=== PATIENT | female | born 1970 | race Caucasian/White ===

== ENCOUNTER 2018-07-08 14:23 | Emergency (ER) | payer BC, OTHER ==
--- NOTE | 2018-07-08 14:46 | UC ---
Hand/Wrist HPI - HPI Summary HPI Summary: 48 yo female presents with right elbow pain and laceration. She tells me that she was at work and was walking a floor that was just mopped and still wet. She fell backwards and landed on her right elbow and hit the top of her head. No LOC. She left work and came to . She endorses some tingling and shocks radiating from her right elbow into her right hand. Has a small headache, but mostly painful to touch the area on her head. Denies dizziness, weakness, vision changes, n/v. - History Of Current Complaint Stated Complaint: R ELBOW AND HAND INJURY Time Seen by Provider: 07/08/18 14:46 Hx Obtained From: Patient Hx Last Menstrual Period: 06/07/15 Onset/Duration: Sudden Onset Severity Initially: Moderate Severity Currently: Moderate Pain Intensity: 7 Pain Scale Used: 0-10 Numeric - Allergies/Home Medications Allergies/Adverse Reactions: Allergies Allergy/AdvReac Type Severity Reaction Status Date / Time bupropion Allergy Extreme Verified 07/08/18 14:59 depression iodine Allergy Itching Verified 07/08/18 14:59 iohexol Allergy Anaphylatic Verified 07/08/18 14:59 Shock shellfish derived Allergy Inflammation, Verified 07/08/18 14:59 Digestive CONTROL PILLS Allergy Severe GETS ALL Uncoded 07/08/18 14:44 THE WARNING SIGNS GREEN PEPPERS, Allergy Intermediate EXTREME Uncoded 07/08/18 14:44 CUCUMBERS,WHEAT, SOY BLOATING, ITCHY, SWELLING, SEASONAL ALLERGY Allergy Intermediate Congestion Uncoded 07/08/18 14:44 Home Medications: Home Medications Naproxen Sodium [Naproxen 220 mg] 220 mg PO Q12HR PRN 07/08/18 [History Confirmed 07/08/18] PMH/Surg Hx/FS Hx/Imm Hx Respiratory History: Asthma - Surgical History Surgical History: Yes Surgery Procedure, Year, and Place: 2001 [place]ST[place]OMY[place]. 2008 L[place] [facility] [place] RIGHT MENISCUS REPAIR- [facility] [place] - Family History Known Family History: Positive: Respiratory Disease - Social History Occupation: Employed Full-time Lives: With Family Alcohol Use: Occasionally Alcohol Amount: 5 DRINKS/MONTH Substance Use Type: None Smoking Status (MU): Former Smoker Type: Cigarettes Amount Used/How Often: 1/2 PPD 15 YRS Length of Time of Smoking/Using Tobacco: 15 YRS Have You Smoked in the Last Year: No When Did the Patient Quit Smoking/Using Tobacco: 3 YRS AGO Review of Systems Constitutional: Negative Skin: Other - Laceration right elbow Eyes: Negative Respiratory: Negative Cardiovascular: Negative Gastrointestinal: Negative Neurovascular: Negative Musculoskeletal: Other: - Right elbow pain. Neurological: Headache Psychological: Negative All Other Systems Reviewed And Are Negative: Yes Physical Exam - Summary Physical Exam Summary: GENERAL: NAD. WDWN. No pain distress. SKIN: Right elbow: overlying the olecranon there is a 5mm linear laceration that gapes open when flexed. HEENT: Head: Mild TTP over parietal scalp without laceration or hematoma. NECK: Supple. Nontender. FROM. CHEST: CTAB. No r/r/w. No accessory muscle use. Breathing comfortably and in no distress. CV: RRR. Without m/r/g. Pulses intact. Brisk cap refill. MSK: Right elbow: Moderate TTP overlying olecranon. FROM. Sensations intact distal fingers and symmetric. NEURO: A&Ox3. 3 word recall, remote, recent memory, ability to follow 2-step directions, and attention intact. CN: II: Peripheral khalil intact. Vision normal. III, IV, : EOMI. No nystagmus. PERRLA. V: Sensations intact and symmetric. Opens mouth and clenches teeth. VII: No facial asymmetry. Forehead wrinkles. Grins, shuts eyes, frowns, puffs cheeks. VIII: Hearing intact to finger rub. IX, X: Swallows and coughs. Uvula midline. XI: Shrugs shoulders. Turns head against resistance. XII: No tongue deviation Hmlhor-ii-ancn are intact. Gait with normal base. Romberg: maintains balance, no pronator drift. Normal speech. No facial drooping. PSYCH: Age appropriate behavior. Triage Information Reviewed: Yes Vital Signs: Vital Signs: Temp Pulse Resp BP Pulse Ox 97.9 F 68 18 123/77 100 07/08/18 14:45 07/08/18 14:45 07/08/18 14:45 07/08/18 14:45 07/08/18 14:45 Vital Signs Reviewed: Yes Hand/Wrist Course/Dx - Course Course Of Treatment: Pt declined tdap today due to hating needles. The risks of tetanus were discussed and she continued to decline. XR elbow: IMPRESSION: NO ACUTE OSSEOUS INJURY. IF SYMPTOMS PERSIST, RECOMMEND REPEAT IMAGING. Suspect elbow and head contusion. Advised to RICE and take ibuprofen for pain. A time out was performed, witnessed, and signed. The area was irrigated with 200mL sterile saline. 1mL of 2% lidocaine without epi was administered and good anesthetization was achieved. In the usual sterile fashion, TWO 4-0 nylon interrupted sutures were placed. The wound was bandaged with telfa. Pt tolerated procedure well. - Differential Dx/Diagnosis Provider Diagnoses: Fall. Right elbow pain. Right elbow laceration Discharge - Sign-Out/Discharge Documenting (check all that apply): Patient Departure All imaging exams completed and their final reports reviewed: Yes - Discharge Plan Condition: Stable Disposition: HOME Patient Education Materials: Care For Your Stitches (DC), Laceration (DC) Referrals: Hugo Cardenas MD [Primary Care Provider] - Additional Instructions: If you develop a fever, shortness of breath, chest pain, new or worsening symptoms - please call your PCP or go to the ED. 1) Please keep the area bandaged, clean, dry, and intact for the next 24 hours. 2) If you develop a fever, colored or thick discharge, increased pain or swelling - please call your PCP or go to the ED. 3) Please return in 7-10 days to have your TWO sutures removed. - Billing Disposition and Condition Condition: STABLE Disposition: Home - Attestation Statements Provider Attestation: Per institutional requirements, I have reviewed the chart, however, I was not consulted specifically or made aware of this patient by the midlevel provider. I did not personally evaluate, interact with , or disposition this patient. Laceration Repair - Laceration Repair 1 Description: Linear Laceration Size After Repair: Length (cm) - 0.5 Modified For Repair: No Type Injection: Local Anesthesia Used: 2.0% Lido Cleansing Completed Via Routine Prep: Yes Closure Material: Sutures - TWO 4-0 Closure Method: Single Layer Suture Of: Skin Suture Type: Nylon
[2018-07-08 14:53] VITALS: BP 123/77
[2018-07-08] MEDS ORDERED: Lidocaine 2% PF * 5 ML VIAL INJ ONE (15:04)
--- NOTE | 2018-07-08 15:34 | RAD ---
HISTORY: Pain. Fall COMPARISONS: None VIEWS: 4 , Frontal, lateral, and oblique views of the right elbow FINDINGS: BONE DENSITY: Normal. BONES: There is no displaced fracture. JOINTS: There is no arthropathy. There is no posterior supracondylar fat pad to suggest a joint effusion. ALIGNMENT: There is no dislocation. SOFT TISSUES: Unremarkable. OTHER FINDINGS: None. IMPRESSION: NO ACUTE OSSEOUS INJURY. IF SYMPTOMS PERSIST, RECOMMEND REPEAT IMAGING.
== END 2018-07-08 16:20 | disposition home or self-care (01) ==
LOC: UCEAST 14:23
DX: M25.521 Pain in right elbow (principal); S51.011A Laceration without foreign body of right elbow, initial encounter; W01.0XXA Fall on same level from slipping, tripping and stumbling without subsequent striking against object, initial encounter; Y93.01 Activity, walking, marching and hiking; Y92.9 Unspecified place or not applicable; Y99.0 Civilian activity done for income or pay; Z88.8 Allergy status to other drugs, medicaments and biological substances; Z88.3 Allergy status to other anti-infective agents; Z91.041 Radiographic dye allergy status; Z91.013 Allergy to seafood; Z87.891 Personal history of nicotine dependence
CPT/HCPCS: 12001; 99211; G0463

== ENCOUNTER 2018-12-13 09:19 | Emergency (ER) | payer OTHER ==
[2018-12-13 09:37] VITALS: BP 100/67
--- NOTE | 2018-12-13 16:07 | UC ---
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 Immediate bruising, pain, no bleeding but + superficial skin tears. Seen here for workers comp. no decreased mvoement, numbness, tingling. - History of Current Complaint Chief Complaint: UCLaceration Stated Complaint: BITTEN BY A CHILD BROKE SKIN Time Seen by Provider: 12/13/18 09:44 Hx Obtained From: Patient Hx Last Menstrual Period: 12/12/18 ?: No Onset/Duration: Sudden Onset Severity Initially: Moderate Severity Currently: Moderate Pain Intensity: 2 Pain Scale Used: 0-10 Numeric Location Of Pain: Is Discrete @ - right forearm Character: Sharp Aggravating Factor(s): Movement Alleviating Factor(s): Rest Associated Signs And Symptoms: Positive: Swelling, Redness, Bruising - Allergies/Home Medications Allergies/Adverse Reactions: Allergies Allergy/AdvReac Type Severity Reaction Status Date / Time bupropion Allergy Extreme Verified 12/13/18 09:30 depression iodine Allergy Itching Verified 12/13/18 09:30 iohexol Allergy Anaphylatic Verified 12/13/18 09:30 Shock shellfish derived Allergy Inflammation, Verified 12/13/18 09:30 Digestive CONTROL PILLS Allergy Severe GETS ALL Uncoded 12/13/18 09:30 THE WARNING SIGNS GREEN PEPPERS, Allergy Intermediate EXTREME Uncoded 12/13/18 09:30 CUCUMBERS,WHEAT, SOY BLOATING, ITCHY, SWELLING, SEASONAL ALLERGY Allergy Intermediate Congestion Uncoded 12/13/18 09:30 Home Medications: Home Medications Diphenhydra/Phenyleph/Acetamin [Cold & Flu Relief Multi-Sym Lq] 180 ml PO ONCE 12/13/18 [History Confirmed 12/13/18] PMH/Surg Hx/FS Hx/Imm Hx Previously Healthy: Yes - Surgical History Surgical History: Yes Surgery Procedure, Year, and Place: 2001 CHOLEYCYSTECTOMY- [place]. 2007 LIVER BIOPSY- [facility] [place]. 04/2015 RIGHT MENISCUS REPAIR- [facility] [place]. RIGHT ANKLE 2016 - Family History Known Family History: Positive: Respiratory Disease - Social History Alcohol Use: None Alcohol Amount: 5 DRINKS/MONTH Substance Use Type: None Smoking Status (MU): Former Smoker Type: Cigarettes Amount Used/How Often: 1/2 PPD 15 YRS Length of Time of Smoking/Using Tobacco: 15 YRS Have You Smoked in the Last Year: No When Did the Patient Quit Smoking/Using Tobacco: 3 YRS AGO Review of Systems All Other Systems Reviewed And Are Negative: Yes Skin: Positive: Bruising Musculoskeletal: Positive: Edema, Myalgia Is Patient Immunocompromised?: No Physical Exam Triage Information Reviewed: Yes Appearance: Well-Appearing, No Pain Distress, Well-Nourished Vital Signs: Initial Vital Signs Temp 99.3 F 12/13/18 09:32 Pulse 59 12/13/18 09:32 Resp 16 12/13/18 09:32 BP 100/67 12/13/18 09:32 Pulse Ox 100 12/13/18 09:32 Vital Signs Reviewed: Yes Eyes: Positive: Conjunctiva Clear Musculoskeletal: Positive: Strength Intact, ROM Intact, Edema @ - mild over bite area apprximately 2x3 cm Neurological Exam: Normal Neurological: Positive: Other: - sitlt Psychological Exam: Normal Skin: Positive: Other - superficial skin tears not breaking through dermis in 2 spots, + ecchymosis with mild erythema, full ROM, strength. Upper Extremity Course/Dx - Course Course Of Treatment: Continue to monitor area, no exposure to saliva/ skin barrier not compromised - Differential Dx/Diagnosis Differential Diagnosis/HQI/PQRI: Laceration, Strain, Sprain Provider Diagnosis: Contusion Discharge - Sign-Out/Discharge Documenting (check all that apply): Patient Departure All imaging exams completed and their final reports reviewed: No Studies - Discharge Plan Condition: Good Disposition: HOME Patient Education Materials: Contusion in Adults (ED) Referrals: Hugo Cardenas MD [Primary Care Provider] - Additional Instructions: - ice packs - Return with redness, decreased movement - Billing Disposition and Condition Condition: GOOD Disposition: Home
== END 2018-12-13 10:12 | disposition home or self-care (01) ==
LOC: UCEAST 09:19
DX: S50.11XA Contusion of right forearm, initial encounter (principal); Y99.0 Civilian activity done for income or pay; Z88.8 Allergy status to other drugs, medicaments and biological substances; Z91.013 Allergy to seafood; Z91.018 Allergy to other foods; Z91.09 Other allergy status, other than to drugs and biological substances; Z87.891 Personal history of nicotine dependence; W50.3XXA Accidental bite by another person, initial encounter; Y92.9 Unspecified place or not applicable
CPT/HCPCS: 99211; G0463

== ENCOUNTER 2019-05-03 11:42 | Emergency (ER) | payer BC ==
--- OUTSIDE RECORDS SUMMARY | 2019-05-03 12:09 | XMS REPORT | Continuity of Care Document ---
:1970 External Reference #:[id number] Author Name Radha Dinh Care Team Providers Name Role Phone Hugo Cardenas MD Primary Care Physician Unavailable Payers Date Identification Numbers Payment Provider Subscriber Policy Number: [id number] [employer] Hobit Lafshaunae PayID: [id number] [address] [address] [place] [address] Expires: 2017 Policy Number: [id number] [employer] Medicaid Hobit Yani PayID: [id number] [address] [address] [place] [address] Expires: 2017 Policy Number: [id number] Lifetime Benefit Hobit Lafshaunae Solution Group Number: [id number] [address] PayID: [id number] [place] [id number] Expires: 2017 Policy Number: [id number] Medicaid Hobit Dione Group Name: 1 1 [address] PayID: [id number] [place] [address] Problems Active Problems Provider Date Chest pain Ovidio Blackman M.D. Onset: 01/13/2014 Knee joint effusion Tari Castillo M.D. Onset: 08/27/2015 Localized, primary osteoarthritis Tari Castillo M.D. Onset: 08/27/2015 Lesion of ulnar nerve Tari Castillo M.D. 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 ETOH Use Denies alcohol use Tobacco Use Start: Unknown End: Patient is a former Quite 1 year ago Unknown smoker Smoking Status Reviewed: 04/08/19 Patient is a former Quite 1 year ago smoker Exercise Type/Frequency Exercises regularly Allergies, Adverse Reactions, Alerts Active Allergies Reaction Severity Comments Date Shelfish 12/16/2013 Singulair Numbness/Fatigue 12/16/2013 Wellbutrin 12/16/2013 Control Pills 12/16/2013 Tapioca 01/13/2014 Green Peppers 01/13/2014 Cucumbers 01/13/2014 Contrast Dye 11/20/2014 Medications Active Medications SIG Qnty Indications Ordering Provider Date Vitamin D Unknown History Medications Naprosyn take 1 by mouth 60tabs Tari Castillo, 12/22/2016 - 500mg twice a day as M.D. 04/07/2019 Tablets needed pain Diclofenac Sodium apply 20 gtt over 300ml Yoshi Lozano 12/10/2016 - affected area qid M.D. 05/28/2017 1.5% Solution prn Voltaren apply 2 grams 300g G57.81 Yoshi Lozano, 11/21/2016 - 1% Gel topically three M.D. 05/28/2017 times a day Neurontin take 1 capsules by 60caps G57.81 Yoshi Lozano, 10/10/2016 - 300mg mouth twice a day M.D. 11/03/2016 Capsules Oxycodone HCL 1-2 tabs by mouth 30tabs Yoshi Lozano 07/03/2016 - 5mg every 4-6 hours as M.D. 08/18/2016 Tablets needed Voltaren apply 2g to 100g 715.17 Yoshi Lozano, 04/20/2015 - 1% Gel affected area four M.D. 12/31/2015 times a day Zofran 1 every 8 hours as 60tabs Tari Castillo, 04/04/2015 - 4mg Tablets needed M.D. 07/03/2016 nausea/vomiting No Active Unknown 03/22/2015 - Medications 03/22/2015 Manteno 1 by mouth thrice 30tabs Yoshi Lozano 01/10/2015 - 5-325mg Tablets a day as needed M.D. 03/21/2015 pain Benadryl take two capsules 20caps Yoshi Lozano, 01/10/2015 - 25mg twice a day M.D. 03/21/2015 Capsules No Active Unknown 11/20/2014 - Medications 11/20/2014 Naproxen 1 by mouth twice a 60tabs Tari Castillo 11/20/2014 - 500mg day as needed M.D. 03/21/2015 Tablets Asmanex daily Unknown - 220mcg 11/19/2014 Clarinex Reditabs 1 po prn 90tabs Unknown - 5mg 11/19/2014 Tablets Dispers Ibuprofen as needed Unknown - 200mg 04/07/2019 Tablets Medications Administered in Office Medication SIG Qnty Indications Ordering Provider Date Depomedrol 80MG Tari Castillo M.D. 08/27/2015 Injection Depomedrol 80MG Tari Castillo M.D. 12/20/2014 Injection Depomedrol 80MG Tari Castillo M.D. 11/20/2014 Injection Vital Signs Date Vital Result Comment 04/08/2019 10:46am Height 63 inches 5'3" Weight 178.00 lb Heart Rate 74 /min BP Systolic 100 mmHg BP Diastolic 78 mmHg Respiratory Rate 18 /min Body Temperature 97.7 F Pain Level 8 BMI (Body Mass Index) 31.5 kg/m2 05/29/2017 11:55am Height 63 inches 5'3" Weight 154.00 lb Heart Rate 76 /min Respiratory Rate 18 /min Pain Level 2 BMI (Body Mass Index) 27.3 kg/m2 03/13/2017 2:15pm Height 63 inches 5'3" Weight 154.00 lb Heart Rate 64 /min BP Systolic 101 mmHg BP Diastolic 68 mmHg Body Temperature 97.1 F Pain Level 1 BMI (Body Mass Index) 27.3 kg/m2 02/06/2017 3:42pm Height 63 inches 5'3" Weight 154.00 lb Heart Rate 64 /min BP Systolic 116 mmHg BP Diastolic 76 mmHg Respiratory Rate 16 /min Body Temperature 97.6 F Pain Level 3 BMI (Body Mass Index) 27.3 kg/m2 01/16/2017 3:09pm Height 63 inches 5'3" Weight 154.00 lb Heart Rate 60 /min BP Systolic 109 mmHg BP Diastolic 70 mmHg Respiratory Rate 16 /min Body Temperature 98.1 F Pain Level 3 BMI (Body Mass Index) 27.3 kg/m2 11/21/2016 1:28pm Height 63 inches 5'3" Weight 154.00 lb Pain Level 3 BMI (Body Mass Index) 27.3 kg/m2 10/10/2016 2:38pm Height 63 inches 5'3" Weight 154.00 lb Pain Level 5 BMI (Body Mass Index) 27.3 kg/m2 08/22/2016 3:31pm Height 63 inches 5'3" Weight 154.00 lb Heart Rate 66 /min BP Systolic 96 mmHg BP Diastolic 60 mmHg BMI (Body Mass Index) 27.3 kg/m2 08/01/2016 11:26am Height 63 inches 5'3" Weight 154.00 lb Pain Level 1 BMI (Body Mass Index) 27.3 kg/m2 07/03/2016 11:11am Height 63 inches 5'3" Weight 154.00 lb Heart Rate 62 /min BP Systolic 90 mmHg BP Diastolic 64 mmHg Pain Level 0 BMI (Body Mass Index) 27.3 kg/m2 01/01/2016 4:48pm Height 65 inches 5'5" Weight 150.00 lb Pain Level 0 BMI (Body Mass Index) 25.0 kg/m2 09/14/2015 8:43am Height 65 inches 5'5" Weight 150.00 lb Pain Level 3 BMI (Body Mass Index) 25.0 kg/m2 08/27/2015 9:02am Height 65 inches 5'5" Weight 150.00 lb Pain Level 7 BMI (Body Mass Index) 25.0 kg/m2 06/21/2015 1:11pm Height 65 inches 5'5" Weight 150.00 lb Pain Level 1 up to 9 at times BMI (Body Mass Index) 25.0 kg/m2 05/28/2015 11:05am Height 65 inches 5'5" Weight 150.00 lb Heart Rate 68 /min BP Systolic 108 mmHg BP Diastolic 79 mmHg Pain Level 1 BMI (Body Mass Index) 25.0 kg/m2 04/20/2015 9:48am Height 65 inches 5'5" Weight 150.00 lb Pain Level 0 when hurting -8 BMI (Body Mass Index) 25.0 kg/m2 04/13/2015 10:13am Height 65 inches 5'5" Weight 145.00 lb Body Temperature 97.3 F BMI (Body Mass Index) 24.1 kg/m2 03/22/2015 8:26am Height 65 inches 5'5" Weight 145.00 lb Heart Rate 60 /min BP Systolic 97 mmHg BP Diastolic 66 mmHg Pain Level 6 BMI (Body Mass Index) 24.1 kg/m2 03/09/2015 3:01pm Height 65 inches 5'5" Weight 145.00 lb Heart Rate 65 /min BP Systolic 95 mmHg BP Diastolic 71 mmHg Pain Level 0 BMI (Body Mass Index) 24.1 kg/m2 01/18/2015 3:16pm Height 65 inches 5'5" Weight 145.00 lb Pain Level 1 BMI (Body Mass Index) 24.1 kg/m2 01/10/2015 1:20pm Height 65 inches 5'5" Weight 150.00 lb Pain Level 8 BMI (Body Mass Index) 25.0 kg/m2 12/20/2014 3:52pm Height 65 inches 5'5" Weight 150.00 lb Pain Level 7 BMI (Body Mass Index) 25.0 kg/m2 12/15/2014 3:10pm Height 65 inches 5'5" Heart Rate 64 /min BP Systolic 109 mmHg BP Diastolic 60 mmHg 11/24/2014 3:03pm Height 65 inches 5'5" Weight 150.00 lb Pain Level 10 BMI (Body Mass Index) 25.0 kg/m2 11/20/2014 1:34pm Height 65 inches 5'5" Weight 150.00 lb Heart Rate 66 /min BP Systolic 105 mmHg BP Diastolic 69 mmHg BMI (Body Mass Index) 25.0 kg/m2 01/13/2014 12:57pm Height 63 inches 5'3" Weight 152.00 lb without shoes Heart Rate 6668 /min sit and stand HR reg BP Systolic 100 mmHg Ra reg cuff BP Diastolic 70 mmHg Ra reg cuff BP Systolic Sitting 94 mmHg LA reg cuff BP Diastolic Sitting 62 mmHg LA reg cuff BP Systolic Standing 100 mmHg LA reg cuff BP Diastolic Standing 72 mmHg LA reg cuff Respiratory Rate 17 /min BMI (Body Mass Index) 26.9 kg/m2 Results Test Date Facility Test Result H/L Range Note Laboratory test 07/21/2016 [facility] Surgical SEE RESULT [address] [place] [address] [phone] Laboratory test 07/21/2016 [facility] Negative N Negative [address] (HCG) [place] [address] [phone] Laboratory test 04/03/2015 [facility] Urine Negative N Negative [address] [place] [address] [phone] 1 SEE RESULT BELOW Name: NORIS MCCRARY : [address]: Yoshi Lozano MD Acct: [id number] Unit: [id number] AGE: 46 Location: OR Re07/21/16 SEX: F Status: REG [facility] [place] SPEC: [id number] ELI: 07/21/16- [facility] DR: Yoshi Lozano MD REQ: [id number] RECD: 07/21/16 STATUS: SOUT _ ORDERED: Decal, LEVEL III FINAL DIAGNOSIS Foot, right, navicular, excision: -- Benign bone and cartilage. PRE-OPERATIVE DIAGNOSIS Primary osteoarthritis GROSS DESCRIPTION The specimen is received in formalin labeled, Bone Spur Navicular Right Foot , and consists of a 1.9 x 1.6 x 0.4 cm aggregate of cameron-white, irregular bone fragments. Cardiology Specialist sections, one cassette following decalcification. MICROSCOPIC DESCRIPTION Signed (signature on file) Camelia Wilkins MD 1012 END OF REPORT * ML=Testing performed at Main Lab DEPARTMENT OF PATHOLOGY, [address] [place] [address] Miguel Angel Gallagher M.D. Director [facility] # [id number] 2 If is still suspected, please repeat test after 48 to 72 hours. This test detects intact HCG only and is indicated for the early detection of . 3 If is still suspected, please repeat test after 48 to 72 hours. This test detects intact HCG only and is indicated for the early detection of . Procedures Date Code Description Status 07/21/2016 56174 Partial Excision Bone Tarsal/Metatarsal Completed 07/21/2016 91787 Partial Excision Bone Tarsal/Metatarsal Completed 08/27/201568168 Inject/Drain Joint/Bursa Major W/O US Completed 04/03/2015 99632 Arthroscopy,Knee,Meniscectomy Medial Or Lateral Completed 04/03/2015 99559 Arthroscopy,Knee,Meniscectomy Medial Or Lateral Completed 12/20/2014 02479 Inject/Drain Joint/Bursa Major W/O US Completed 11/20/2014 51963 Xray Knee 3 Views Completed 11/20/2014 63315 Inject/Drain Joint/Bursa Major W/O US Completed 11/29/2013 94009 ECHO Stress Test Incl Perf Contiuous ekg Monitoring W/Phys Completed Superv Encounters Type Date Location Provider Dx Diagnosis Office Visit 05/29/2017 John Rooney9.071 Primary 11:45a [facility] osteoarthritis, right C.M.A. ankle and foot Office Visit 03/13/2017 John Rooney9.071 Primary 2:15p [facility] osteoarthritis, right C.M.A. ankle and foot Office Visit 02/06/2017 Jhon Rooney9.071 Primary 3:30p [facility] osteoarthritis, right C.M.A. ankle and foot Office Visit 01/16/2017 John Belle G57.81 Other specified 3:00p [facility] mononeuropathies of C.M.A. right lower limb M25.571 Pain in right ankle and joints of right foot Office Visit 11/21/2016 John Belle G57.81 Other specified 1:15p [facility] mononeuropathies of C.M.A. right lower limb Office Visit 01/01/2016 Orthopedic Yoshi M19.071 Primary 4:20p [facility] osteoarthritis, right C.M.A. ankle and foot Office Visit 09/14/2015 Orthopedic Tari M17.12 Unilateral primary 8:45a [facility] osteoarthritis, left C.M.A. knee M25.562 Pain in left knee Office Visit 08/27/2015 8:45a Orthopedic Services Tari Castillo M25.562 Pain in left Of C.[facility]. [facility] knee M25.462 Effusion, left knee M17.0 Bilateral primary osteoarthritis of knee Office Visit 06/21/2015 Orthopedic Yoshi 715.17 Osteoarthrosis 1:10p [facility] Localized Prim Ankle C.M.A. & Foot V54.89 Aftercare, Orthopedic Other Office Visit 04/20/2015 John Belle 715.17 Osteoarthrosis 9:30a [facility] Localized Prim Ankle C.M.A. & Foot Office Visit 03/09/2015 Orthopedic Tari Castillo, 726.2 Shoulder Region 3:00p [facility] Affections Other Not C.M.A. Elsewhere Class 836.2 Dislocation Knee Tear Of Cartilage Or Meniscus Current Other Office Visit 01/18/2015 3:00p Orthopedic Yoshi 719.27 Synovitis [facility] Villonodular Ankle C.M.A. & Foot 719.57 Stiffness Joint Not Elsewhere Classified Ankle & Foot Office Visit 01/10/2015 1:00p Orthopedic Yoshi 719.27 Synovitis [facility] Villonodular Ankle C.M.A. & Foot 729.5 Pain In Limb 995.27 Other Drug Allergy Office Visit 12/20/2014 Orthopedic Tari Castillo 715.16 Osteoarthrosis 3:15p [facility] Localized Prim Lower C.M.A. Leg Office Visit 12/15/2014 John Belle 719.47 Pain Joint Ankle & 3:00p [facility] Foot C.M.A. Office Visit 11/24/2014 Orthopedic Yoshi 718.87 Derangement Joint 3:00p [facility] Other Not Elsewhere C.M.A. Class Ankle & Foot Office Visit 11/20/2014 Orthopedic Tari Castillo, 715.16 Osteoarthrosis 1:30p [facility] Localized Prim Lower C.M.A. Leg 726.2 Shoulder Region Affections Other Not Elsewhere Class 715.17 Osteoarthrosis Localized Prim Ankle & Foot Office Visit 01/13/2014 1:00p [facility] Ovidio Shaw 786.50 Pain Chest Of Zenon Blackman M.D. Unspec Plan of Treatment 04/08/2019 - Tari Castillo M.D.M25.561 Pain in right kneeFollow up:Follow up: after testing is completed - mri r kneeM25.562 Pain in left kneeM25.461 Effusion , right kneeM25.462 Effusion, left kneeM17.0 Bilateral primary osteoarthritis of kneeM25.521 Pain in right obqwlP26.21 Lesion of ulnar nerve, right upper limbNew Therapy:Physical Therapy
--- NOTE | 2019-05-03 12:10 | ED ---
Allergic Reaction/Systemic - HPI Summary HPI Summary: 48 year old F presenting to [facility] with a chief complaint of suprapubic abdominal cramping since getting hormonal IUD placed on 04/28/19. The patient rates the pain 0/10 in severity. Symptoms aggravated by nothing. Symptoms alleviated by nothing. Yesterday, patient had rash on bilateral upper thighs. Last night, patient had rash on her abdomen and bilateral arms. Patient took Benadryl last night. Patient states she felt nauseous this morning so she went to [facility] today where they took her IUD out this morning. Patient felt better after having the IUD removed. - History of Current Complaint Chief Complaint: EDAllergicReaction Time Seen by Provider: 05/03/19 12:03 Hx Obtained From: Patient Onset/Duration: Started days ago - 5, Still Present Timing: Constant Severity Currently: None Pain Intensity: 0 Pain Scale Used: 0-10 Numeric Aggravating Factor(s): Nothing Alleviating Factor(s): Nothing Associated Signs And Symptoms: Positive: Nausea, Rash - on bilateral upper thighs, abdomen, and bilateral arms - Allergies/Home Medications Allergies/Adverse Reactions: Allergies Allergy/AdvReac Type Severity Reaction Status Date / Time bupropion Allergy Extreme Verified 05/03/19 11:55 depression iodine Allergy Itching Verified 05/03/19 11:55 iohexol Allergy Anaphylatic Verified 05/03/19 11:55 Shock shellfish derived Allergy Inflammation, Verified 05/03/19 11:55 Digestive CONTROL PILLS Allergy Severe GETS ALL Uncoded 05/03/19 11:55 THE WARNING SIGNS GREEN PEPPERS, Allergy Intermediate EXTREME Uncoded 05/03/19 11:55 CUCUMBERS,WHEAT, SOY BLOATING, ITCHY, SWELLING, SEASONAL ALLERGY Allergy Intermediate Congestion Uncoded 05/03/19 11:55 Home Medications: Home Medications Loratadine [Claritin 10 MG CAP] 10 mg PO DAILY 05/03/19 [History Confirmed 05/03] PMH/Surg Hx/FS Hx/Imm Hx Previously Healthy: No Endocrine/Hematology History: Denies: Hx Diabetes Cardiovascular History: Reports: Other Cardiovascular Problems/Disorders - STRESS TEST- 2013 Denies: Hx Hypertension, Hx Pacemaker/ICD Respiratory History: Reports: Hx Asthma - INHALER GI History: Reports: Hx Irritable Bowel - HX OF History: Denies: Hx Renal Disease Musculoskeletal History: Reports: Hx Arthritis - BILATERAL- KNEES, Other Musculoskeletal History - PT C/O INCREASING PAIN IN RIGHT ANKLE FOR PAST MONTH Sensory History: Reports: Hx Contacts or Glasses - GLASSES Denies: Hx Hearing Aid Opthamlomology History: Reports: Hx Contacts or Glasses - GLASSES Psychiatric History: Reports: Hx Anxiety - SLIGHT OCD, Hx Depression - HX OF Denies: Hx Panic Disorder - Cancer History Hx Chemotherapy: No Hx Radiation Therapy: No - Surgical History Surgery Procedure, Year, and Place: 2001 CHOLEYCYSTECTOMY- [place]. 2007 LIVER BIOPSY- [facility] [place]. 04/2015 RIGHT MENISCUS REPAIR- [facility] [place]. RIGHT ANKLE 2016 Hx Anesthesia Reactions: No - SEVERE ABD PAIN AND DISTENDED ABDOMEN, REHOSPITALIZED X 2 Infectious Disease History: No Infectious Disease History: Denies: Traveled Outside the [place] in Last 30 Days - Family History Known Family History: Positive: Respiratory Disease Negative: Cardiac Disease, Diabetes - Social History Alcohol Use: Rare Alcohol Amount: 5 DRINKS/MONTH Hx Substance Use: No Substance Use Type: Reports: None Hx Tobacco Use: Yes Smoking Status (MU): Former Smoker Type: Cigarettes Amount Used/How Often: 1/2 PPD 15 YRS Length of Time of Smoking/Using Tobacco: 15 YRS Have You Smoked in the Last Year: No Review of Systems Positive: Nausea, Other - abdominal cramping Positive: Rash - on bilateral upper thighs, abdomen, and bilateral arms All Other Systems Reviewed And Are Negative: Yes Physical Exam - Summary Physical Exam Summary: VITAL SIGNS: Reviewed. GENERAL: Patient is a well-developed and nourished FEMALE who is lying comfortable in the stretcher. Patient is not in any acute respiratory distress. HEAD AND FACE: No signs of trauma. No ecchymosis, hematomas or skull depressions. No sinus tenderness. EYES: PERRLA, EOMI x 2, No injected conjunctiva, no nystagmus. EARS: Hearing grossly intact. Ear canals and tympanic membranes are within normal limits. MOUTH: Oropharynx within normal limits. NECK: Supple, trachea is midline, no adenopathy, no JVD, no carotid bruit, no c- spine tenderness, neck with full ROM. CHEST: Symmetric, no tenderness at palpation LUNGS: Clear to auscultation bilaterally. No wheezing or crackles. CVS: Regular rate and rhythm, S1 and S2 present, no murmurs or gallops appreciated. ABDOMEN: Soft, non-tender. No signs of distention. No rebound no guarding, and no masses palpated. Bowel sounds are normal. EXTREMITIES: FROM in all major joints, no edema, no cyanosis or clubbing. NEURO: Alert and oriented x 3. No acute neurological deficits. Speech is normal and follows commands. SKIN: Erythema in the abdomen, upper extremities and hips. Hives in the abdomen Triage Information Reviewed: Yes Vital Signs On Initial Exam: Initial Vitals Temp Pulse Resp BP Pulse Ox 98.8 F 62 16 117/74 99 05/03/19 11:47 05/03/19 11:47 05/03/19 11:47 05/03/19 11:47 05/03/19 11:47 Vital Signs Reviewed: Yes Diagnostics - Vital Signs Vital Signs Temp Pulse Resp BP Pulse Ox 05/03/19 11:47 98.8 F 62 16 117/74 99 - Laboratory Lab Statement: Any lab studies that have been ordered have been reviewed, and results considered in the medical decision making process. Re-Evaluation - Re-Evaluation First Eval Re-Evaluation Time: 12:22 Comment: patient is agreeable to discharge Allergic Reaction Course/Dx - Course Assessment/Plan: 48 year old F presenting to [facility] with a chief complaint of suprapubic abdominal cramping since getting hormonal IUD placed on 04/28/19. The patient rates the pain 0/10 in severity. Symptoms aggravated by nothing. Symptoms alleviated by nothing. Yesterday, patient had rash on bilateral upper thighs. Last night, patient had rash on her abdomen and bilateral arms. Patient took Benadryl last night. Patient states she felt nauseous this morning so she went to [facility] today where they took her IUD out this morning. Patient felt better after having the IUD removed. The patient was offered Benadryl, prednisone and Prevacid however the patient declined. The patient reports that she is getting better and the symptoms have resolved. She has a slight erythema in the abdomen, extremities and hips. However she reports that the symptoms are significantly improved. Therefore she requested to be discharged. The patient was offered to observe her for a couple hours and the patient refused. Therefore she will be discharged home with a prescription for Benadryl, Pepcid and prednisone. Before discharge the patient doesnt have any swelling of the lips, swelling of the tongue, airway compromise, or wheezing. Patient is hemodynamically stable. - Diagnoses Provider Diagnoses: Urticaria Discharge - Sign-Out/Discharge Documenting (check all that apply): Patient Departure - Dishcarge Patient Received Moderate/Deep Sedation with Procedure: No - Discharge Plan Condition: Stable Disposition: HOME Prescriptions: diPHENhydraMINE PO* [Benadryl PO 25 MG TAB*] 25 mg PO TID PRN #30 tab PRN Reason: Allergy Symptoms Famotidine TAB* [Pepcid 20 MG TAB*] 20 mg PO DAILY #14 tab predniSONE TAB* [Deltasone 20 MG TAB*] 40 mg PO DAILY #10 tab Patient Education Materials: General Allergic Reaction (ED) Referrals: Hugo Cardenas MD [Primary Care Provider] - 3 Days Additional Instructions: Follow up with your primary care provider in 3 days. Return to the Emergency Department for new or worsening symptoms. - Billing Disposition and Condition Condition: STABLE Disposition: Home - Attestation Statements Document Initiated by Scribe: Yes Documenting Scribe: Elva Dickey Provider For Whom Daina is Documenting (Include Credential): Arnav Lyons MD Scribe Attestation: Elva Barlow, scribed for Arnav Lyons MD on 05/04/19 at 2111. Scribe Documentation Reviewed: Yes Provider Attestation: The documentation as recorded by the Elva medina accurately reflects the service I personally performed and the decisions made by , Arnav Lyons MD Status of Scribe Document: Viewed
[2019-05-03] MEDS ORDERED: diPHENhydraMINE PO* 25 MG PO ONE (12:11)
[2019-05-03] MEDS ORDERED: Famotidine TAB* 20 MG PO ONE (12:11)
[2019-05-03] MEDS ORDERED: predniSONE TAB* 20 MG PO ONE (12:11)
[2019-05-03 12:49] VITALS: BP 113/79
== END 2019-05-03 12:50 | disposition home or self-care (01) ==
LOC: ED 11:42
DX: L50.9 Urticaria, unspecified (principal); Z88.8 Allergy status to other drugs, medicaments and biological substances; Z87.891 Personal history of nicotine dependence; Z91.041 Radiographic dye allergy status
CPT/HCPCS: 99282; A9270-GY; J7512

== ENCOUNTER 2019-05-05 11:12 | Emergency (ER) | payer BC ==
[2019-05-05 11:27] VITALS: BP 96/59
--- NOTE | 2019-05-05 12:22 | UC ---
Complaint Female HPI - HPI Summary HPI Summary: Had paragard removed after completion of its use after 10 yrs. a week ago and had Mirena placed same day. A few days later developed rash on her legs, abd arms and went to [facility] on b/ it was thought she was having an atypical rxn to the Mirena placment. She had US done that day and placement was good but they removed any way. They prescribed benadryl and prednisone, she never picked up. Rash is resolved per pt. Her main concern today is that since the Mirena removal on vaginal bleeding persists and is heavy for her. She is going through a few pads but not drenching them, in a few hours. Denies dizziness, palpitations, hill. She reports some fatigue but marked improvement from Thursday. She was taken to the ED on . - History Of Current Complaint Chief Complaint: UCGU Stated Complaint: VAGINAL BLEEDING Time Seen by Provider: 05/05/19 12:12 Hx Obtained From: Patient Hx Last Menstrual Period: 04/25/19 Onset/Duration: Gradual Onset Pain Intensity: 0 Aggravating Factor(s): Nothing Alleviating Factor(s): Nothing Associated Signs And Symptoms: Positive: Vaginal Bleeding/Discharge - Allergies/Home Medications Allergies/Adverse Reactions: Allergies Allergy/AdvReac Type Severity Reaction Status Date / Time bupropion Allergy Extreme Verified 05/05/19 11:27 depression iodine Allergy Itching Verified 05/05/19 11:27 iohexol Allergy Anaphylatic Verified 05/05/19 11:27 Shock shellfish derived Allergy Inflammation, Verified 05/05/19 11:27 Digestive CONTROL PILLS Allergy Severe GETS ALL Uncoded 05/05/19 11:27 THE WARNING SIGNS GREEN PEPPERS, Allergy Intermediate EXTREME Uncoded 05/05/19 11:27 CUCUMBERS,WHEAT, SOY BLOATING, ITCHY, SWELLING, SEASONAL ALLERGY Allergy Intermediate Congestion Uncoded 05/05/19 11:27 PMH/Surg Hx/FS Hx/Imm Hx - Additional Past Medical History Additional PMH: no chronic conditions Previously Healthy: Yes - Surgical History Surgical History: Yes Surgery Procedure, Year, and Place: 2001 CHOLEYCYSTECTOMY- [place]. 2007 LIVER BIOPSY- [facility] [place]. 04/2015 RIGHT MENISCUS REPAIR- [facility] [place]. RIGHT ANKLE 2016 - Family History Known Family History: Positive: Respiratory Disease Negative: Cardiac Disease, Diabetes - Social History Alcohol Use: Rare Alcohol Amount: 5 DRINKS/MONTH Substance Use Type: None Smoking Status (MU): Former Smoker Type: Cigarettes Amount Used/How Often: 1/2 PPD 15 YRS Length of Time of Smoking/Using Tobacco: 15 YRS Have You Smoked in the Last Year: No When Did the Patient Quit Smoking/Using Tobacco: 3 YRS AGO Review of Systems All Other Systems Reviewed And Are Negative: Yes Constitutional: Positive: Fatigue. Negative: Fever, Chills Skin: Positive: Rash Respiratory: Negative: Shortness Of Breath Cardiovascular: Negative: Palpitations Gastrointestinal: Negative: Nausea Genitourinary: Positive: Abnormal Bleeding. Negative: Dysuria Neurological: Negative: Headache Physical Exam Triage Information Reviewed: Yes Appearance: Well-Appearing Vital Signs: Initial Vital Signs Temp 98 F 05/05/19 11:21 Pulse 111 05/05/19 11:21 Resp 20 05/05/19 11:21 BP 96/59 05/05/19 11:21 Pulse Ox 100 05/05/19 11:21 Vital Signs Reviewed: Yes Respiratory Exam: Normal Cardiovascular Exam: Normal Abdomen Description: Positive: Nontender, Soft. Negative: CVA Tenderness (R), CVA Tenderness (L), Distended, Guarding Pelvic Exam: Negative: Other - DECLINED Neurological: Positive: Alert Psychological: Positive: Age Appropriate Behavior Skin: Positive: Rashes - SMALL patch on Her L ribs of what appears to excoriations. Complaint Female Dx - Course Course Of Treatment: Atypical allergic reaction after Mirena insertion. Was evaluated w/ US which showed normal placement but was removed due to atypical rxn. Was taken to ED. Rx for prednisone and benadryl but she never picked up meds. On exam there were excoriations at L rib cage. but no signs of hives or vasculitis . She does have a lot of allergies. She deferred vaginal exam. Her main issue was vaginal bleeding which could just be from removal of IUD but US needed as first step. On exam pulse rechecked and 102 but otherwise her vitals are stable. Exam unremarkable. HCG neg. At this point it is unclear what is causing vaginal bleeding given the recent IUD removal, reaction, and her period is not due. An Ultrasound was recommended which is not at this site. Pt is stable and was told to go to ED. She wanted to think about this and we gave her guidelines of when to go to ED. - Differential Dx/Diagnosis Differential Diagnosis/HQI/PQRI: , Urinary Tract Infection, Other Provider Diagnosis: Vaginal bleeding Discharge - Sign-Out/Discharge Documenting (check all that apply): Patient Departure All imaging exams completed and their final reports reviewed: No Studies - Discharge Plan Condition: Good Disposition: HOME Patient Education Materials: Dysfunctional Uterine Bleeding (ED) Referrals: Hugo Cardenas MD [Primary Care Provider] - Additional Instructions: It is my recommendation that you to go the Emergency room for an Ultrasound. Any abnormal vaginal bleeding needs this type of imaging. Should you develop more vaginal bleeding, fatigue, palpitations or dizziness please go to any Emergency Room. As a reminder please take any medications that are prescribed to you. - Billing Disposition and Condition Condition: GOOD Disposition: Home
== END 2019-05-05 13:35 | disposition home health service (06) ==
LOC: UCEAST 11:12
DX: N93.9 Abnormal uterine and vaginal bleeding, unspecified (principal); Z87.891 Personal history of nicotine dependence
CPT/HCPCS: 81003; 84702; 99212; G0463